=== PATIENT | male | born 1960 | race Caucasian/White ===

== ENCOUNTER 2021-01-16 15:30 | Inpatient (IN) ==
[2021-01-16] MEDS ORDERED: Ondansetron 4 MG/2 ML VIAL IVP ONE (19:02)
[2021-01-16] MEDS ORDERED: GI Cocktail 40 ML EACH PO ONE (19:04)
[2021-01-16] MEDS ORDERED: Isovue-370 500 ML BOTTLE IVP ONE (19:04)
[2021-01-16] MEDS ORDERED: Pantoprazole 80 MG in 0.9 % Sodium Chloride 50 ML IVPB ONE (19:04)
[2021-01-16 19:34] LABS: Basophils % 0.3 %; Eosinophils # 0.1 K/mcL (0.0-0.6); Eosinophils % 1.4 %; Hematocrit 45.1 % (37.5-50.1); Hemoglobin 15.5 g/dL (12.9-16.9); Immature Granulocytes % 0.3 % (0-4); Lymphocytes # 2.2 K/mcL (0.6-4.6); Lymphocytes % 31.7 %; Mean Corpuscular HGB Conc 34.4 g/dL (31.6-35.5); Mean Corpuscular Hemoglobin 31.7 pg (28.0-33.3); Mean Corpuscular Volume 92.2 fL (83.0-100.0); Mean Platelet Volume 9.5 fL (9.4-12.4); Monocytes # 0.6 K/mcL (0.0-1.3); Monocytes % 8.1 %; Neutrophils # 4.1 K/mcL (1.6-8.9); Platelet Count 172 K/mcL (140-400); Red Blood Count 4.89 M/mcL (4.19-5.50); Red Cell Distribution Width 13.1 % (11.5-14.5); Segmented Neutrophils % 58.2 %
[2021-01-16] MEDS: 0.9 % Sodium Chloride 1,000 ML IVC SCH (19:35)
[2021-01-16 19:47] LABS: BUN/Creatinine Ratio 13 (6-26); Blood Urea Nitrogen 13 mg/dL (8-23); Carbon Dioxide 25 mEq/L (23-29); Chloride 106 mEq/L (98-107); Glucose 98 mg/dL (70-105); Magnesium 1.8 mg/dL (1.6-2.6); Osmolality,Calculated 286 (280-300); Potassium 3.9 mEq/L (3.5-5.1); Sodium 138 mEq/L (136-145); eGFR For African Americans > 60 (> 60); eGFR For Non-African Americans > 60 (> 60)
[2021-01-16 19:54] LABS: Troponin I < 0.03 ng/mL (< 0.04)
[2021-01-16 20:00] LABS: INR 1.3; Prothrombin Time 14.5 Seconds (9.4-12.1)
[2021-01-16 20:00] LABS: VBG Ionized Calcium 1.17 mmol/L (1.15-1.35)
[2021-01-16 20:02] LABS: Activated Partial Thrombo Time 30.9 Seconds (26.0-36.0)
[2021-01-17] MEDS ORDERED: Naloxone 0.4 MG/ML INJ IVP PRN (01:46)
[2021-01-17] MEDS ORDERED: Perflutren Lipid Microsphere 1.3 ML in 0.9 % Sodium Chloride 8.7 ML IVP PRN (01:54)
[2021-01-17] MEDS: 0.9 % Sodium Chloride 1,000 ML IVC SCH (02:49)
[2021-01-17] MEDS ORDERED: Acetaminophen 325 MG TABLET PO PRN (03:58)
[2021-01-17 04:05] LABS: Bilirubin,Urine Negative (Negative); Blood,Urine Trace (Negative); Clarity,Urine Clear (Clear); Color,Urine Light-Yellow (Yellow); Glucose,Urine (UA) Normal (Normal); Ketones,Urine Negative (Negative); Leukocyte Esterase,Urine Negative (Negative); Mucus,Urine Few per lpf (None-Few); Nitrite,Urine Negative (Negative); Protein,Urine Negative (Neg-Trace); RBC,Urine 0-3 per hpf (0-3); Specific Gravity,Urine > 1.030 (1.010-1.025); Urobilinogen,Urine Normal (Normal); WBC,Urine 0-3 per hpf (0-3)
[2021-01-17] MEDS ORDERED: *HR* Metoprolol 5 MG/5 ML VIAL IVP ONE (04:13)
[2021-01-17 05:11] LABS: Basophils % 0.6 %; Eosinophils # 0.1 K/mcL (0.0-0.6); Eosinophils % 1.1 %; Hematocrit 44.6 % (37.5-50.1); Hemoglobin 15.2 g/dL (12.9-16.9); Immature Granulocytes % 0.4 % (0-4); Lymphocytes # 2.8 K/mcL (0.6-4.6); Lymphocytes % 39.9 %; Mean Corpuscular HGB Conc 34.1 g/dL (31.6-35.5); Mean Corpuscular Hemoglobin 31.9 pg (28.0-33.3); Mean Corpuscular Volume 93.7 fL (83.0-100.0); Mean Platelet Volume 9.9 fL (9.4-12.4); Monocytes # 0.7 K/mcL (0.0-1.3); Neutrophils # 3.4 K/mcL (1.6-8.9); Platelet Count 170 K/mcL (140-400); Red Blood Count 4.76 M/mcL (4.19-5.50); Red Cell Distribution Width 13.2 % (11.5-14.5); White Blood Count 7.1 K/mcL (4.3-11.1)
[2021-01-17] MEDS ORDERED: *HR* Metoprolol 5 MG/5 ML VIAL IVP PRN ×2 (05:12→07:31)
[2021-01-17 05:31] LABS: BUN/Creatinine Ratio 13 (6-26); Blood Urea Nitrogen 12 mg/dL (8-23); Calcium 8.7 mg/dL (8.6-10.3); Carbon Dioxide 24 mEq/L (23-29); Chloride 108 mEq/L (98-107); Glucose 92 mg/dL (70-105); Magnesium 1.9 mg/dL (1.6-2.6); Osmolality,Calculated 285 (280-300); Phosphorous 2.8 mg/dL (2.7-4.5); Sodium 138 mEq/L (136-145); eGFR For African Americans > 60 (> 60); eGFR For Non-African Americans > 60 (> 60)
[2021-01-17 06:00] LABS: Triiodothyronine (T3) Total 114 ng/dL (87-178)
[2021-01-17] MEDS ORDERED: 0.9 % Sodium Chloride 1,000 ML IVC SCH (07:31)
[2021-01-17] MEDS ORDERED: FLUoxetine 20 MG CAPSULE PO SCH (10:15)
[2021-01-17] MEDS ORDERED: Metoprolol XL (24 HR) Succ 25 MG TAB.ER.24H PO SCH ×2 (13:00→21:00)
[2021-01-17 13:47] LABS: Adenovirus Not Detected (Not Detect); Bordetella Pertussis Not Detected (Not Detect); Chlamydophila pneumoniae Not Detected (Not Detect); Coronavirus 229E Not Detected (Not Detect); Coronavirus HKU1 Not Detected (Not Detect); Coronavirus NL63 Not Detected (Not Detect); Coronavirus OC43 Not Detected (Not Detect); Human Metapneumovirus Not Detected (Not Detect); Human Rhinovirus/Enterovirus Not Detected (Not Detect); Influenza A Subtype 2009 H1 Not Detected (Not Detect); Influenza B Not Detected (Not Detect); Mycoplasma pneumoniae Not Detected (Not Detect); Parainfluenza Virus 1 Not Detected (Not Detect); Parainfluenza Virus 2 Not Detected (Not Detect); Parainfluenza Virus 3 Not Detected (Not Detect); Parainfluenza Virus 4 Not Detected (Not Detect); Respiratory Syncytial Virus Not Detected (Not Detect); SARS-CoV-2 Not Detected (Not Detect)
[2021-01-17] MEDS ORDERED: lisinopriL 5 MG TABLET PO SCH (14:30)
[2021-01-17] MEDS ORDERED: Sacubitril/Valsartan 24/26 MG 1 TABLET PO SCH (21:00)
[2021-01-17] MEDS: lisinopriL 5 MG TABLET PO SCH (21:32)
[2021-01-17] MEDS: FLUoxetine 20 MG CAPSULE PO SCH (21:32)
[2021-01-18] MEDS ORDERED: Furosemide 40 MG/4 ML VIAL IVP ONE (00:28)
[2021-01-18] MEDS ORDERED: Furosemide 40 MG/4 ML VIAL ONE (00:35)
[2021-01-18] MEDS: Levalbuterol Neb 1.25 MG/3 ML IH SCH ×6 (00:37→19:53)
[2021-01-18 06:34] LABS: Basophils % 0.5 %; Eosinophils # 0.1 K/mcL (0.0-0.6); Eosinophils % 1.2 %; Hematocrit 44.5 % (37.5-50.1); Hemoglobin 15.1 g/dL (12.9-16.9); Immature Granulocytes % 0.2 % (0-4); Lymphocytes # 2.3 K/mcL (0.6-4.6); Mean Corpuscular HGB Conc 33.9 g/dL (31.6-35.5); Mean Corpuscular Hemoglobin 31.9 pg (28.0-33.3); Mean Corpuscular Volume 93.9 fL (83.0-100.0); Monocytes # 0.7 K/mcL (0.0-1.3); Monocytes % 8.1 %; Neutrophils # 5.1 K/mcL (1.6-8.9); Platelet Count 173 K/mcL (140-400); Red Blood Count 4.74 M/mcL (4.19-5.50); Red Cell Distribution Width 13.2 % (11.5-14.5); White Blood Count 8.3 K/mcL (4.3-11.1)
[2021-01-18 06:47] LABS: INR 1.2; Prothrombin Time 14.2 Seconds (9.4-12.1)
[2021-01-18 06:56] LABS: BUN/Creatinine Ratio 15 (6-26); Blood Urea Nitrogen 16 mg/dL (8-23); Carbon Dioxide 28 mEq/L (23-29); Chloride 104 mEq/L (98-107); Glucose 83 mg/dL (70-105); Osmolality,Calculated 288 (280-300); Potassium 3.9 mEq/L (3.5-5.1); Sodium 139 mEq/L (136-145); eGFR For African Americans > 60 (> 60); eGFR For Non-African Americans > 60 (> 60)
[2021-01-18] MEDS ORDERED: Lidocaine HCL 4 ML Topical Solution (Laryng-O-Jet Kit Sterile Pak) TP ONE (07:57)
[2021-01-18] MEDS ORDERED: Lidocaine -MPF 2% 5 ML VIAL ONE (07:58)
[2021-01-18] MEDS ORDERED: *HR* Succinylcholine 200 MG/10 ML VIAL IVP ONE (08:00)
[2021-01-18] MEDS ORDERED: Ondansetron 4 MG/2 ML VIAL ONE (08:00)
[2021-01-18] MEDS ORDERED: *HR* FentaNYL (PF) 100 MCG/2 ML VIAL ONE (08:01)
[2021-01-18] MEDS ORDERED: *HR* FentaNYL (PF) 100 MCG/2 ML VIAL IVP PRN (08:52)
[2021-01-18] MEDS ORDERED: Albuterol 2.5 MG/3 ML NEBULIZER IH PRN (08:52)
[2021-01-18] MEDS ORDERED: Ondansetron 4 MG/2 ML VIAL IVP PRN (08:52)
[2021-01-18] MEDS ORDERED: EPHEDrine 50 MG/ML VIAL ONE (09:10)
[2021-01-18] MEDS ORDERED: Ringers Solution, Lactated 1,000 ML ONE (09:50)
[2021-01-18 15:43] LABS: Appearance of Body Fluid Hazy (Clear); Volume of Body Fluid 9 mL
[2021-01-18] MEDS: Metoprolol XL (24 HR) Succ 25 MG TAB.ER.24H PO SCH (21:49)
[2021-01-18] MEDS: lisinopriL 5 MG TABLET PO SCH (21:49)
[2021-01-18] MEDS: FLUoxetine 20 MG CAPSULE PO SCH (21:49)
[2021-01-19] MEDS: Levalbuterol Neb 1.25 MG/3 ML IH SCH ×7 (00:46→23:49)
[2021-01-19 06:30] LABS: Basophils % 0.4 %; Eosinophils % 0.2 %; Hematocrit 42.2 % (37.5-50.1); Hemoglobin 14.7 g/dL (12.9-16.9); Immature Granulocytes % 0.4 % (0-4); Lymphocytes # 2.4 K/mcL (0.6-4.6); Lymphocytes % 28.8 %; Mean Corpuscular HGB Conc 34.8 g/dL (31.6-35.5); Mean Corpuscular Hemoglobin 32.9 pg (28.0-33.3); Mean Corpuscular Volume 94.4 fL (83.0-100.0); Monocytes # 0.7 K/mcL (0.0-1.3); Monocytes % 8.5 %; Neutrophils # 5.2 K/mcL (1.6-8.9); Platelet Count 176 K/mcL (140-400); Red Blood Count 4.47 M/mcL (4.19-5.50); Red Cell Distribution Width 13.1 % (11.5-14.5); Segmented Neutrophils % 61.7 %; White Blood Count 8.5 K/mcL (4.3-11.1)
[2021-01-19] MEDS: Metoprolol XL (24 HR) Succ 25 MG TAB.ER.24H PO SCH ×2 (08:07→21:56)
[2021-01-19 10:43] LABS: BUN/Creatinine Ratio 19 (6-26); Blood Urea Nitrogen 20 mg/dL (8-23); Carbon Dioxide 28 mEq/L (23-29); Chloride 103 mEq/L (98-107); Glucose 96 mg/dL (70-105); Osmolality,Calculated 290 (280-300); Potassium 4.3 mEq/L (3.5-5.1); Sodium 139 mEq/L (136-145); eGFR For African Americans > 60 (> 60); eGFR For Non-African Americans > 60 (> 60)
[2021-01-19] MEDS: Furosemide 20 MG TABLET PO SCH (17:56)
[2021-01-19] MEDS: FLUoxetine 20 MG CAPSULE PO SCH (21:55)
[2021-01-19] MEDS: lisinopriL 5 MG TABLET PO SCH (21:56)
[2021-01-20] MEDS: Levalbuterol Neb 1.25 MG/3 ML IH SCH ×4 (03:56→15:10)
[2021-01-20] MEDS: Furosemide 20 MG TABLET PO SCH (08:36)
[2021-01-20] MEDS: Metoprolol XL (24 HR) Succ 25 MG TAB.ER.24H PO SCH (08:36)
[2021-01-20 12:16] VITALS: BP 109/71; PULSE 85; TEMP 97.6; O2SAT 93
== END 2021-01-20 17:28 | disposition home or self-care (01) | DRG 308 ==
LOC: EMEROOARM 15:30 → 3ANU 15:30 → SUATTDRO 01-17 00:56 → 3ANU 01-17 01:22
PROVIDERS: ADMIT Family Medicine; ATTEND Hospitalist